=== PATIENT | male | born 2000 | race Caucasian/White ===

== ENCOUNTER 2023-01-20 11:07 | Emergency (ER) | payer BC, SELFPAY ==
--- NOTE | 2023-01-20 11:14 | ED.EAR ---
HPI - Ear Problem General Chief complaint: Ear Stated complaint: ear inf History of Present Illness HPI Narrative: 22-year-old male presents to the [facility] today complaining of left ear pain. Patient believes he might have gotten swimmer's ear from swimming on the 15 of January. Patient stated he noticed symptoms on Saturday was having worsening pain in his left ear. Patient stated he was using either rubbing alcohol or hydrogen peroxide in his ear to see if that would help. Since then the pain has been worsened he patient stated he noticed discharge coming out of his left ear. Patient denies any pain in the right ear. Patient states that his pain is left ear is worse when he is moving his jaw or eating. Patient denies any other symptoms or hearing loss. Related Data Home Medications Medication Instructions Recorded Confirmed multivitamin 1 tablet PO DAILY 01/20/23 01/20/23 omega-3 fatty acids 500 mg capsule 500 mg PO DAILY 01/20/23 01/20/23 Allergies Allergy/AdvReac Type Severity Reaction Status Date / Time Penicillins Allergy Hives Verified 01/20/23 11:16 Review of Systems Review of Systems: CONSTITUTIONAL: Denies fever, chills, or sweats. EYES: Denies visual changes, redness, or discharge. ENT: Positive for otalgia. Denies sore throat CARDIOVASCULAR: Denies chest pain, palpitations, or edema. RESPIRATORY: Denies cough or dyspnea. GASTROINTESTINAL: Denies abdominal pain, nausea, vomiting, or diarrhea. GENITOURINARY: Denies dysuria or hematuria. SKIN: Denies rash or itching. MUSCULOSKELETAL: Denies back pain, joint pain, or myalgia. NEUROLOGIC: Denies headache, numbness, or weakness. Pertinent positives per HPI. PMFSH Comments At the time of my signature, I reviewed and agree with the nursing past medical, surgical, social, and family history. There is no relevant family history pertinent to the patient complaint. Exam Narrative: GENERAL: This is a well-nourished, well-developed patient, in no apparent distress. HEAD: normocephalic, atraumatic. EYES: Sclera clear/white. Vision is grossly intact. EARS: Left external ear is unremarkable. Left auditory canal mildly edematous, tender, and erythemic. Left tympanic membrane is pearly taylor with a good cone of light. Right external ear is unremarkable. Right auditory canal is patent with mild erythema with no tenderness, without swelling, or discharge. Right tympanic membrane is pearly taylor with a good cone of light. Hearing grossly intact NOSE: External nose normal with no obvious nasal discharge, nares without redness, no rhinorrhea. THROAT: Mucous membranes moist, posterior pharynx clear. NECK: Neck supple, non-tender without lymphadenopathy, masses or thyromegaly. CARDIOVASCULAR: Regular rate and rhythm without murmurs, gallops, or rubs. RESPIRATORY: Clear to auscultation. Breath sounds equal bilaterally. No wheezes, rales, or rhonchi. GASTROINTESTINAL: Abdomen soft, non-tender, nondistended. Bowel sounds are active. No hepato-splenomegaly, or palpable masses. No guarding. SKIN: warm, intact with no suspicious lesions or rash, good texture and turgor. NEURO: awake, alert, and oriented to person, place and time. There were no obvious focal neurologic abnormalities. EXTREMITIES: No clubbing, cyanosis, or edema. No joint tenderness, effusion, or edema noted. BACK: Nontender without deformity or crepitus. No flank tenderness. Course Course Level of Care: Express Care Visit Medical Decision Making MDM Narrative Medical decision making narrative: Take antibiotics as directed. May given ibuprofen and/or Tylenol as needed for pain and/or fever. Follow up with primary care provider in 7-10 days to have ear rechecked. Differential Diagnosis Differential Diagnosis: Otitis media, otitis externa, mastoiditis Critical Care Time Critical Care Time Critical Care Time: No Discharge Plan Discharge Clinical Impression: Otitis externa Patient
[2023-01-20 11:20] VITALS: BP 122/68; PULSE 93; RESP 16; TEMP 37.3; O2SAT 98
== END 2023-01-20 11:43 | disposition home or self-care (01) ==
PROVIDERS: Emergency Provider Nurse Practitioner Family
DX: H60.92 Unspecified otitis externa, left ear (principal)
CPT/HCPCS: 99213; G0463